=== PATIENT | female | born 2005 | race African-American/Black ===

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

== ENCOUNTER 2025-07-09 02:15 | Emergency (ER) | payer OTHER, SELFPAY ==
[~2025-07-09 02:15] MED LIST: IRON27TA2 PO; PRENTAB9 PO
[2025-07-09 03:05] LABS: BASO # 0.0 10^3/uL (0.0-0.2); BASO % 0.1 % (0.0-1.0); EOS # 0.1 10^3/uL (0.0-0.5); EOS % 1.3 % (0.0-3.0); LYMPH # 1.0 10^3/uL (1.5-5.0); LYMPH % 11.8 % (24.0-44.0); MONO # 0.1 10^3/uL (0.0-0.8); MONO % 1.3 % (2.0-8.0); NEUTROPHILS # 7.5 10^3/uL (1.5-8.5); NEUTROPHILS % 85.4 % (36.0-66.0); PLATELET COUNT, AUTOMATED 360 10^3/uL (150-450)
[2025-07-09 03:18] LABS: HCG, SERUM QUALITATIVE NEGATIVE (NEGATIVE)
[2025-07-09 03:19] LABS: ALT/SGPT 64 U/L (7.0-40); AST/SGOT 139 U/L (<34); CALCIUM LEVEL 8.8 MG/DL (8.5-10.1); CARBON DIOXIDE LEVEL 23 MMOL/L (20-31); CHLORIDE LEVEL 106 MMOL/L (98-107); CREATININE FOR GFR 0.48 MG/DL (0.55-1.30); GLOMERULAR FILTRATION RATE > 90.0 (>60); POTASSIUM SERUM 3.7 MMOL/L (3.5-5.1); SODIUM LEVEL 140 MMOL/L (136-145)
[2025-07-09] MEDS: KETOROLAC 30 MG/ML 1 ML VIAL IV ONE (04:33)
[2025-07-09] MEDS ORDERED: ISOVUE-370 76% 100 ML VIAL As Ordered ONE (04:41)
[2025-07-09] MEDS: ONDANSETRON 4MG/2ML VIAL IV ONE (06:13)
[2025-07-09] MEDS: MORPHINE 4 MG/ML 1 ML VIAL IV PRN (06:14)
[2025-07-09] MEDS: NS (Normal Saline) 0.9% 1,000 ML IV ONE (07:28)
[2025-07-09] MEDS: FLEET OIL RETENTION ENEMA PR ONE (07:54)
[2025-07-09] MEDS: MAGNESIUM CITRATE 300 ML BTL PO ONE (07:55)
[2025-07-09] MEDS ORDERED: MIRA3350 PO (07:58)
[2025-07-09 08:54] VITALS: BP 104/68; TEMP 98; O2SAT 100
== END 2025-07-09 09:06 | disposition home or self-care (01) ==
LOC: M ED 02:15 → M SDC 02:16 → M ED 09:06
DX: R10.9 Unspecified abdominal pain (principal); K59.00 Constipation, unspecified; Z79.899 Other long term (current) drug therapy
CPT/HCPCS: 74177; 80048; 80076; 83605; 83690; 84703; 85025; 93041; 96361; 96374; 96375; 99285; J1885; J2405; Q9967

== ENCOUNTER 2025-08-16 17:01 | Emergency (ER) | payer OTHER ==
[~2025-08-16] VITALS: Ht 149.9 cm; Wt 57.6 kg
[~2025-08-16 17:01] MED LIST changes: +MIRA3350 PO
[2025-08-16] MEDS ORDERED: APAP325T4 PO (17:13)
[2025-08-16] MEDS ORDERED: IBUP200T46 PO (17:13)
[2025-08-16 18:45] VITALS: BP 107/62; TEMP 100; O2SAT 100
== END 2025-08-16 18:51 | disposition home or self-care (01) ==
LOC: M ED 17:01 → EDBD 17:01 → M ED 18:51
DX: J09.X2 Influenza due to identified novel influenza A virus with other respiratory manifestations (principal); Z79.1 Long term (current) use of non-steroidal anti-inflammatories (NSAID)